=== PATIENT | male | born 2000 | race Caucasian/White ===

== ENCOUNTER 2023-01-27 12:14 | Outpatient (CLI) | payer OTHER, SELFPAY ==
--- NOTE | 2023-01-27 | ECG_ITS ---
[facility] Test Date: 2023-01-27 Pat Name: Hudson Mendoza Department: Room: Gender: Male Delivery Supervisor: Lou Mustafa : 2000 Requested By: Valeria Henderson Order Number: [id number] Miguel Angel MD: Hermelinda Polanco M.D. Interpretive Statements NAME OF STUDY: TREADMILL STRESS TEST INDICATION: Chest pain Baseline blood pressure of 145/81 mm Hg, heart rate of 78 beats per minute. EKG showed sinus rhythn, right axis deviation with poor anterior R wave progression. ??? The patient exercised for 8 min 13 seconds on a [standard Raffaele protocol]. Patient attained a maximum heart rate of 191 beats per minute( 97 % of the maximum predicted heart rate) with a blood pressure at the peak exercise of 152/68 mm Hg and oxygen saturation of 97%. The EKG at the peak exercise revealed sinus tcahycardia with no significant ST-T wave changes. Patient did [not have any chest pain or any significant arrhythmis with the exercise]??? During the recovery phase, there were no new changes. ??? Blood pressure at the end of the recovery phase was 140/88 mm Hg with a heart rate of 97 beats per minute. ??? CONCLUSION: 1. Normal EKG response to treadmill exercise. 2. No exercise-induced chest pain or cardiac arrhythmia. 3. Good exercise tolerance, attained a maximum of 10.2 METs. 4. Baseline hypertension with normal response to exercise. Electronically Signed On 01-27-2023 16:53:05 CDT by Hermelinda Polanco M.D. [email or web address]
[2023-01-27 12:48] VITALS: BMI 33.3
[2023-01-27 13:39] VITALS: BP 140/88; PULSE 97
== END 2023-01-27 12:15 | disposition home or self-care (01) ==
LOC: CDL 12:15
PROVIDERS: PCP Family Medicine; Visit Provider Family Medicine
DX: R07.9 Chest pain, unspecified (principal)
CPT/HCPCS: 93017

== ENCOUNTER → 2023-05-18 14:31 | Outpatient (BNVA) | payer OTHER, SELFPAY | PROVIDERS: PCP Family Medicine; Referring Provider Family Medicine; Visit Provider Physician Assistant | DX: M67.432 Ganglion, left wrist | CPT/HCPCS: 73110; 99204 ==

== ENCOUNTER 2023-06-21 05:58 | Day surgery (SDC) | payer OTHER, SELFPAY ==
[2023-06-21] VITALS (7 sets, daily range): BP systolic 97–167; BP diastolic 52–99; PULSE 61–83; RESP 16–18; TEMP 36.1–36.3; O2SAT 96–100; BMI 32.5
[2023-06-21] MEDS: acetaminophen 1,000 MG/100 ML PIGGYBACK 400 MG IV (06:10)
[2023-06-21] MEDS: sodium chloride 0.9% 1,000 ML 30 ML IV (06:10)
[2023-06-21] MEDS: ketorolac 30 mg/mL INJ IVP (06:17)
--- NOTE | 2023-06-21 06:57 | P.ANESASSM_ITS ---
Pre-Anesthetic Assessment Height/Weight: Height 1.83 m Weight 108.862 kg Temp Pulse Resp BP Pulse Ox O2 Del Method 97.3 F L 69 18 167/99 98 Room Air 06/21/23 06:12 06/21/23 06:12 06/21/23 06:12 06/21/23 06:12 06/21/23 06:12 06/21/23 06:12 Operation Date: 06/21/23 07:25 Proposed Procedures p Excision Of Ganglion Cyst(Left Dorsal Wrist)(Left) - Sean Torres DO Familial anesthetic complications: None Was Beta Sofia taken within 24 hours: N/A Was Clonidine taken within 24 hours: N/A Last intake: Intake Last Liquid Date 06/20/23 Last Liquid Time 20:00 Last Solid Date 06/20/23 Last Solid Time 18:00 Social No alcohol and No tobacco vapes Exam alert, oriented x 3, clear to auscultation bilaterally and regular rate & rhythm Airway Mallampati: Class IV Dentition: full Metabolic obese Anesthetic Plan ASA status: 2 Anesthesia: MAC Risk of > 500 ml blood loss (7ml/kg in children): No Medications/Allergies Home Medications Medication Instructions Recorded Confirmed Last Taken Type ibuprofen 200 mg capsule 200 mg PO Q6H PRN Pain 05/18/23 06/21/23 Unknown History Allergies Allergy/AdvReac Type Severity Reaction Status Date / Time No Known Allergies Allergy Verified 06/20/23 16:41 Current Medications Generic Name Dose Route Start Last Admin Trade Name Freq PRN Reason Stop Dose Admin Sodium Chloride 1,000 mls @ 30 mls/hr 06/21/23 06:15 06/21/23 06:10 Sodium Chloride 0.9% IV 06/22/23 06:14 30 mls/hr .Q24H TOD Administration PFSH Anesthesia Family History Father Myocardial infarction Social History (Updated 05/18/23 @ 14:38 by Marie Simpson LPN) Smoking and tobacco/nicotine status: current every day tobacco/nicotine user e- cigarettes Alcohol intake: current Alcohol intake frequency: holidays/special occasions only Data Anesthesia Cardiac Studies: No Data to Display
--- NOTE | 2023-06-21 07:09 | W.PM.OPSFHP ---
Same Day Surgery H&P Indication for Procedure/HPI DATE OF PROCEDURE: June 21, 2023 CHIEF COMPLAINT/INDICATIONFOR SURGICAL PROCEDURE: Left wrist dorsal ganglion cyst PREOP DIAGNOSIS: Left wrist dorsal ganglion cyst PLANNED PROCEDURE: Operation Date: 06/21/23 07:25 Proposed Procedures p Excision Of Ganglion Cyst(Left Dorsal Wrist)(Left) - [employer], Medications/Allergies* Home Medications Medication Instructions Recorded Confirmed Type ibuprofen 200 mg capsule 200 mg PO Q6H PRN Pain 05/18/23 06/21/23 History Allergies/Adverse Reactions Allergy/AdvReac Type Severity Reaction Status Date / Time No Known Allergies Allergy Verified 06/20/23 16:41 Current Medications: Generic Name Dose Route Start Last Admin Trade Name Freq PRN Reason Stop Dose Admin Sodium Chloride 1,000 mls @ 30 mls/hr 06/21/23 06:15 06/21/23 06:10 Sodium Chloride 0.9% IV 06/22/23 06:14 30 mls/hr .Q24H TOD Administration Pertinent History/Comorbid Conditions* Family History (Updated 01/27/23 @ 12:54 by Rayne Urbina RN) Myocardial infarction Father Social History Smoking and tobacco/nicotine status: current every day tobacco/nicotine user e-cigarettes Alcohol intake: current Alcohol intake frequency: holidays/special occasions only Pertinent Exam Findings alert, oriented x 3, operative site marked and procedure specific exam findings Left wrist -Full ROM with no pain -palpable ganglion fluid filled cyst on dorsal aspect. Soft and mobile. Tender to palpation. -Fingers are warm and well perfused with normal cap refill under 2 seconds. Recommendations Surgery/Procedure today Other Plans: Left wrist dorsal ganglion cyst excision OR today Coding Level of Care Code Acute Code for Chg Fwd Diagnoses
[2023-06-21] MEDS: ceFAZolin 2,000 MG in sodium chloride 0.9% (plus) 50 ML 100 MG IV (07:58)
[2023-06-21] MEDS: lidocaine-epi 1% 20 mL INJ INJECTION (08:22)
[2023-06-21] MEDS: ROPivacaine 0.5% SDV 30 mL 150 MG INJECTION (08:22)
--- NOTE | 2023-06-21 08:57 | P.OP_ITS ---
Operative Report Date of procedure: June 21, 2023 Surgeon: Sean Torres DO Procedure: Preoperative diagnosis: Left wrist ganglion cyst Postoperative diagnosis: Left dorsal wrist ganglion cyst procedure Left dorsal wrist?ganglion?cyst excision Specimens removed/disposition: Left dorsal wrist?ganglion?cyst excised and sent for pathology Surgeon: Sean Torres DO Estimated blood loss: 1mL Tourniquet time 20 minutes IV fluids: See anesthesia record Complications: None Findings: See operative report narrative Condition: stable Disposition: same day Brief History: Patient's been worked up in the outpatient setting and findings consistent with preoperative diagnosis.? Patient has a left dorsal wrist?ganglion?cyst.? Patient has attempted conservative treatment and this has become significantly painful.? We talked about treatment options as far as nonoperative and operative intervention.? At this point time patient like a more permanent solution in the lowest chance of recurrence and as result through shared decision making we agreed to proceed with a left dorsal wrist?ganglion?cyst excision.? Patient understands risk benefits complication alternatives surgical nonsurgical treatment options.? Understanding risk of surgery patient agrees to proceed.? All questions answered.? Consent obtained in the office. Procedure: Patient seen evaluate in the preoperative holding area.? Consent was signed and reviewed with patient.? All questions were answered at that time.? Correct extremity was then marked.? Once seen evaluated by anesthesia patient was then brought back to the operative suite.? Patient was then placed in supine position all bony prominences well-padded patient was properly secured to the bed.? An armboard was then applied for the left upper extremity.? A nonsterile tourniquet was applied to the left upper extremity arm.? Patient then underwent anesthesia per the anesthesia department.? Once appropriately anesthetized the left upper extremity was then prepped and draped in standard orthopedic fashion.? Final timeout performed.? Patient received appropriate preoperative antibiotics. Under sterile aseptic technique I began with local anesthetic for my preplanned surgical site.? Then I utilized an Esmarch tourniquet to exsanguinate the left upper extremity to 250 mmHg Patient had a large soft mobile?ganglion?cyst which a incision was then centered longitudinally directly over the cyst over the dorsal aspect of the right wrist.? sharp scalpel incision was made through skin and subcutaneous tissue.? I then switched to dissection scissors and spread longitudinally to identify branches of the superficial radial nerve.? These were protected throughout the case.? I immediately encountered the?ganglion?cyst which was just distal to the extensor retinaculum and between the third and fourth dorsal compartments.? I then protected the tendons and identified the?ganglion?cyst subsequently dissected circumferentially all the way to the base which was connected to the dorsal capsule.? This was then transected at the base with bipolar electrocautery.? I did have to excise some of the dorsal capsule that communicated with the cyst this had a broad connection and cyst stalk to the dorsal capsule. I utilized bipolar electrocautery to to seal off the dorsal capsule and prevent any further cyst recurrence.? Cyst was then sent for pathology.? I then thoroughly irrigated the wound bed tourniquet was deflated.? Hemostasis was satisfactory with bipolar electrocautery.? I then closed the incision in layered fashion with 3-0 Vicryl suture subcutaneously and running M onocryl stitch for skin.? Dermabond and Steri-Strips for skin incision. 4 x 4's ABD soft roll and a volar splint was applied.? Patient was then awakened from anesthesia and taken back in stable condition. Disposition: Patient taken back in stable condition recovering well.? Patient will receive appropriate discharge instructions as well as pain medication postoperatively.? Patient placed in a volar splint.? We will follow-up with in the orthopedic office in 2 weeks.? Patient understands of any questions or concerns and contact the office.
--- NOTE | 2023-06-21 08:57 | W.PM.BPON ---
Date of Procedure: [June 21, 2023] Surgeon: [Dr. Torres DO] Doughnut Batter Mixer(s): [Nathaniel Torres physician associate] Procedure(s) performed: [Left dorsal wrist ganglion cyst excision] Findings of the procedure(s): [Left wrist ganglion cyst] Estimated blood loss: [1 mL] Specimen(s) removed: [Ganglion cyst sent to lab] Post-operative diagnosis: [Left wrist ganglion cyst]
--- NOTE | 2023-06-21 09:00 | PM.PACU ---
PACU note Narrative: Patient is a 23-year-old male that just underwent a left wrist ganglion cyst excision. Patient transferred to PACU in stable condition. Pain is well controlled. Dressing on hand is dry and in place. Patient's fingers are warm and well-perfused. Patient can wiggle fingers. normal cap refill under 2 seconds. Patient has normal elbow range of motion. Sensation to hand intact. Exam: awake Disposition: discharged
[2023-06-21] MEDS: TRAMadol 50 mg Tablet PO (09:39)
--- NOTE | 2023-06-21 10:35 | ANE.PACU2 ---
Inpatient post-anesthesia follow up: Airway intact: Yes Vital signs: Temperature 97.3 F Pulse Rate 61 Respiratory Rate 18 Blood Pressure 160/83 Pulse Oximetry 100 Oxygen Delivery Me thod Room Air Oxygen Flow Rate 6 Fraction of Inspir ed Oxygen Hydration adequate: Yes Nausea and vomiting: No Pain level: 1 Mental status: Baseline
== END 2023-06-21 10:15 | disposition home or self-care (01) ==
PROVIDERS: PCP Family Medicine; Visit Provider Student in an Organized Health Care Education/Training Program
PROC: (CPT 25111; principal; 2023-06-21 07:25)
DX: M67.432 Ganglion, left wrist (principal); E66.9 Obesity, unspecified; Z68.32 Body mass index [BMI] 32.0-32.9, adult; F17.290 Nicotine dependence, other tobacco product, uncomplicated
CPT/HCPCS: 25111; 88304; J0131; J0690; J1885; J2250; J2704; J2795; J3010; J7030

== ENCOUNTER → 2023-07-11 14:23 | Outpatient (BNVA) | payer OTHER, SELFPAY | PROVIDERS: PCP Family Medicine; Visit Provider Student in an Organized Health Care Education/Training Program | DX: M67.432 Ganglion, left wrist (principal) | CPT/HCPCS: 99213 ==

== ENCOUNTER 2024-02-02 06:06 | Outpatient (CLI) | payer OTHER, SELFPAY ==
--- NOTE | 2024-02-02 06:17 | US_ITS ---
WS: [id number] RIGHT UPPER QUADRANT ULTRASOUND HISTORY: Elevated Liver Enzymes COMPARISON: None available. Liver: 17.1 cm in length. Mild increased echogenicity throughout the liver. No mass or bile duct dila tation. Portal Vein: Normal hepatopetal flow with monophasic waveform. Gallbladder: Normally distended gallbladder with no stones or wall thickening. CBD: 0.3 cm Pancreas: Only a small portion of the mid pancreas identified. Head and tail are not visualized. Right kidney: 11.1 cm in length. Normal size and echogenicity. No hydronephrosis or mass. Aorta and IVC: Unremarkable abdominal aorta and IVC. No ascites. US/US abdomen limited [id number] IMPRESSION: 1. Normal gallbladder. 2. Mild hepatic steatosis.
== END 2024-02-02 06:07 | disposition home or self-care (01) ==
LOC: RAD 06:06
PROVIDERS: PCP Family Medicine; Visit Provider Family Medicine
DX: Z01.89 Encounter for other specified special examinations (principal)
CPT/HCPCS: 76705